=== PATIENT | male | born 1940 | race Caucasian/White ===

== ENCOUNTER 2017-03-13 12:14 | Day surgery (SDC) | payer BC ==
[~2017-03-13] VITALS: Ht 182.9 cm; Wt 108.9 kg
--- NOTE | ~2017-03-13 | EGD ---
EGD REPORT [facility] [address] [place] [address] NAME: NEMESIO KAUFMAN : [birth year] STATUS : REG [facility]#: [id number] AGE: 76 ADM/REG DATE : 03/13/17 MR#: [id number] REPORT SERV DATE: 03/13/17 DICTATED BY: ANA MOCK DATE: 03/13/17 REPORT STATUS : Draft TRANSCRIBED BY: [facility] DATE: 03/13/17 Endoscopy Center Patient Name: Nemesio Kaufman Date of : 1940 Attending MD: ANA MOCK MD Procedure Date No Time: 03/13/2017 Procedure: Colonoscopy Indications: Diarrhea, Last colonoscopy: 2011 Referring MD: DANNA MILTON III Medicines: See the Anesthesia note for documentation of the administered medications Complications: No immediate complications. Procedure: Pre-Anesthesia Assessment: - ASA Grade Assessment: III - A patient with severe systemic disease. After I obtained informed consent, the scope was passed under direct vision. Throughout the procedure, the patient's blood pressure, pulse, and oxygen saturations were monitored continuously. The [id number] was introduced through the anus with the intention of advancing to the cecum. The scope was advanced to the ascending colon before the procedure was aborted. Medications were given. The colonoscopy was performed without difficulty. The patient tolerated the procedure well. The quality of the bowel preparation was inadequate. Findings: The perianal and digital rectal examinations were normal. Internal hemorrhoids were found during retroflexion and were small. Normal mucosa was found in the ascending colon. Biopsies were taken with a cold forceps for histology. Normal mucosa was found in the rectum. Biopsies were taken with a cold forceps for histology. A sessile polyp was found in the rectum. The polyp was 10 mm in size. The polyp was removed with a hot snare. Resection and retrieval were complete. Inadequate prep with solid stool in ascending colon and cecum Impression: - Preparation of the colon was inadequate. - Internal hemorrhoids. - Normal mucosa in the ascending colon. Biopsied. - Normal mucosa in the rectum. Biopsied. - One 10 mm polyp in the rectum. Resected and retrieved. - Inadequate prep with solid stool in ascending colon EGD REPORT [address] [place]. [address] NAME: NEMESIO KAUFMAN : [birth year] STATUS : REG [facility] PAT#: [id number] AGE: 76 ADM/REG DATE : 03/13/17 MR#: [id number] REPORT SERV DATE: 03/13/17 DICTATED BY: ANA MOCK DATE: 03/13/17 REPORT STATUS : Draft TRANSCRIBED BY: [employer] DATE: 03/13/17 and cecum Recommendation: - Patient has a contact number available for emergencies. The signs and symptoms of potential delayed complications were discussed with the patient. Return to normal activities tomorrow. Written discharge instructions were provided to the patient. - Regular diet. - Continue present medications. - Call office to reschedule colon with better prep - FOR YOUR BIOPSY RESULTS: Please go to [email or web address] and register to receive your results via the portal. Your biopsy results will be posted there in about 7 to 10 days. IF you do not see result in 10 days, call office. Procedure Code(s): --- Professional --- 37208, 52, Colonoscopy, flexible, proximal to splenic flexure; with removal of tumor(s), polyp(s), or other lesion(s) by snare technique 68850, 59,52, Colonoscopy, flexible, proximal to splenic flexure; with biopsy, single or multiple Diagnosis Code(s): --- Professional --- K64.8, Other hemorrhoids K62.1, Rectal polyp R19.7, Diarrhea, unspecified CPT copyright 2013 [employer]. All rights reserved. The codes documented in this report are preliminary and upon pressure sealer and tester review may be revised to meet current compliance requirements. Ana Mock MD ANA MOCK MD 03/13/2017 3:02 PM This report has been signed electronically. Number of Addenda: 0 Note Initiated On: 03/13/2017 2:32 PM Scope Withdrawal Time 0 hours 0 minutes 0 seconds [address] [id number]
[~2017-03-13 12:14] MED LIST: ADVAIR250 INH; ASAB PO; CARTIA XT180 MG/24 PO; JANUVIA50 PO; LIPITOR10 PO; LOP100 PO; MULTIVITAMI1 PO; PRIN20 PO; SINGULAIR1 PO; TRESIBA FL200 UNIT/1 SQ; VITAMIN D2000 UNIT PO; Z100 PO
[2017-03-13 12:50] LABS: BUN (BLOOD UREA NITROGEN) 28 MG/DL (6-23); CALCIUM, SERUM 9.7 MG/DL (8.5-10.4); CHLORIDE, SERUM 106 MMOL/L (96-112); CO2 (CARBON DIOXIDE) 28 MMOL/L (24-34); CREATININE 2.34 MG/DL (0.70-1.30); GFR AFRICAN AMERICAN 30 ML/MIN (>=60); GFR NON AFRICAN AMERICAN 26 ML/MIN (>=60); GLUCOSE, SERUM 108 MG/DL (60-99); SODIUM, SERUM 140 MMOL/L (135-148)
== END 2017-03-13 23:59 | disposition home health service (06) ==
LOC: DMU 12:14
PROVIDERS: Anesthesiology; Internal Medicine Gastroenterology
PROC: 0DBP8ZZ Excision of Rectum, Via Natural or Artificial Opening Endoscopic (ICD-10-PCS; 2017-03-13)
PROC: 0DBK8ZX Excision of Ascending Colon, Via Natural or Artificial Opening Endoscopic, Diagnostic (ICD-10-PCS; principal; 2017-03-13 14:00)
PROC: 0DBP8ZX Excision of Rectum, Via Natural or Artificial Opening Endoscopic, Diagnostic (ICD-10-PCS; 2017-03-13 14:00)
DX: K62.1 Rectal polyp (principal); K64.8 Other hemorrhoids; I25.10 Atherosclerotic heart disease of native coronary artery without angina pectoris; I25.2 Old myocardial infarction; I12.9 Hypertensive chronic kidney disease with stage 1 through stage 4 chronic kidney disease, or unspecified chronic kidney disease; E11.22 Type 2 diabetes mellitus with diabetic chronic kidney disease; N18.4 Chronic kidney disease, stage 4 (severe); Z88.0 Allergy status to penicillin; Z79.82 Long term (current) use of aspirin; Z79.4 Long term (current) use of insulin; Z79.899 Other long term (current) drug therapy; Z90.49 Acquired absence of other specified parts of digestive tract; Z98.890 Other specified postprocedural states
CPT/HCPCS: 80048; 88305